=== PATIENT | female | born 1965 | race Caucasian/White ===

== ENCOUNTER → 2023-12-01 11:17 | Outpatient (REF) | payer OTHER, SELFPAY | LOC: HWRAD 11:17 | PROVIDERS: ATTENDING PHYSICIAN Nurse Practitioner Family | DX: N95.0 Postmenopausal bleeding (principal); Z12.31 Encounter for screening mammogram for malignant neoplasm of breast | CPT/HCPCS: 76830; 76856; 77063; 77067 ==

== ENCOUNTER → 2025-06-20 13:21 | Outpatient (REF) | payer BC, SELFPAY | LOC: HWWDC 13:21 | PROVIDERS: ATTENDING PHYSICIAN Nurse Practitioner Adult Health; FAMILY PHYSICIAN Nurse Practitioner Family | DX: Z12.31 Encounter for screening mammogram for malignant neoplasm of breast (principal) | CPT/HCPCS: 77063; 77067 ==